=== PATIENT | male | born 1995 | race Caucasian/White ===

== ENCOUNTER 2017-11-23 17:23 | Emergency (ER) | payer OTHER ==
[~2017-11-23 17:23] MED LIST: HYDR-653 PO; ISOT40CA13 PO; MELA1TAB23 PO
[2017-11-23] MEDS ORDERED: PHENYLEPHRINE 0.5% 15 ML BTL ONE (17:35)
[2017-11-23] MEDS ORDERED: PSEUDOEPHEDRINE 30 MG TAB PO ONE (17:35)
--- NOTE | 2017-11-23 17:39 | ER Report ---
History and Physical Time Seen By MD: 17:28 Hx. of Stated Complaint: SORE THROAT, CONGESTION, RUNNY NOSE AND "TROUBLE TAKING A DEEP BREATH" HPI/ROS CHIEF COMPLAINT: sorethroat, cough, runny nose HISTORY OF PRESENT ILLNESS: PT states he started a few days ago with nasal congestion. Still with nasal congestion but now also with sorethroat and cough.Pt has pain in chest with cough. Pt not taking any medication for symptoms. no fevers. no chills. Pt is a smoker. no nausea or vomiting. no diarrhea or abd pain. Pt has had a headache but not currently. REVIEW OF SYSTEMS: Constitutional: No fever, no chills. Eyes: No discharge. ENT: + sore throat, + runny nose Cardiovascular: + chest pain with cough , no palpitations. Respiratory: + cough, no shortness of breath. Gastrointestinal: No abdominal pain, no vomiting. Genitourinary: No hematuria. Musculoskeletal: No back pain. Skin: No rashes. Neurological: + headache. Allergies: Coded Allergies: No Known Drug Allergies (Unverified , 05/04/16) Home Meds Discontinued Reported Medications Melatonin (MELATONIN) 1 Mg Tablet, 1 MG PO 12/27/16 Past Medical/Surgical History pmhx: neg Hx Smoking: Yes Smoking Status: Current: Every Day Smoker Hx Substance Use Disorder: No Constitutional Vital Sign - Last 24 Hours 11/23/17 17:27 Temp 98.2 Pulse 83 Resp 18 B/P (MAP) 144/90 Pulse Ox 95 O2 Delivery Room Air Physical Exam General Appearance: The patient is alert, has no immediate need for airway protection and no signs of toxicity. Eyes: Pupils equal and round no pallor or injection, EOMI ENT: + pharyngeal erythema but no exudates, Mucous membranes are moist, TM are nl b/l, + maxiallary sinus pressure with tiltling head forward Respiratory: There are no retractions, lungs are clear to auscultation, no wheezing or rhonchi Cardiovascular: Regular rate and rhythm. pulses are equal and symmetrical Gastrointestinal: Abdomen is soft and non tender, no masses, bowel sounds normal, no guarding, no rigidity or rebound Neurological: Cranial nerves II-XII grossly intact, no sensory or motor loss Skin: Warm and dry, no rashes. Musculoskeletal: Neck is supple non tender, no vertebral tenderness Extremities are nontender, non swollen and have full range of motion. DIFFERENTIAL DIAGNOSIS: After history and physical exam differential diagnosis was considered for sinusitis, strep, bronchitis, uri. Medical Decision Making Data Points Laboratory Hematology Test 11/23/17 17:30 Group A Streptococcus Screen Negative (NEGATIVE) Chemistry Test 11/23/17 17:30 Group A Streptococcus Screen Negative (NEGATIVE) EKG/Imaging Imaging napd ED Course/Re-evaluation ED Course will give pt a dose of afrin in ED to see if that helps with his symptoms 11/23/2017 5:49:44 pm Pt does feel some relief with the neosynephrine nasal spray. will give a dose of pseudophedrine while awaiting strep and xray. Decision to Disposition Date: Nov 23, 2017 Decision to Disposition Time: 17:53 Depart Departure Latest Vital Signs Vital Signs Date Time Temp Pulse Resp B/P (MAP) Pulse Ox O2 Delivery O2 Flow Rate FiO2 11/23/17 17:27 98.2 83 18 144/90 95 Room Air Impression: Primary Impression: Upper respiratory infection Condition: Improved Disposition: HOME OR SELF-CARE New Scripts Azithromycin (ZITHROMAX) 250 Mg Tablet 1 TAB PO QDAY, #4 TAB Prov: LEANDRO VILLA V DO 11/23/17 Patient Instructions: Upper Respiratory Infection (ED) Additional Instructions: Zithromax once a day for 4 days. This is an antibiotic. Phenergan with codeine cough/congestion syrup one teaspoon every 4-6 hours as needed for cough and nasal congestion. Your xray did not show pneumonia. Your throat screen was negative for strep. Follow up with your doctor. Problem Qualifiers Primary Impression: Upper respiratory infection URI type: unspecified URI Qualified Codes: J06.9 - Acute upper respiratory infection, unspecified CB VILLASA V DO Nov 23, 2017 17:39
--- NOTE | 2017-11-23 17:57 | RADIOLOGY IMAGING REPORT ---
FACILITY: [facility] - [place] PATIENT NAME: Enmanuel Marie : 1995 MR: [id number] V: [id number] EXAM DATE: ORDERING PHYSICIAN: LEANDRO VILLA TECHNOLOGIST: Location: [facility] - [place] Patient: Enmanuel Marie : 1995 Visit/Account:[id number] Date of Sevice: 11/23/2017 EXAMINATION: Chest radiographs 2 views HISTORY: Cough. COMPARISON: None. FINDINGS: PA and lateral views of the chest are submitted. Lines/tubes: None. Lungs/pleura: No focal consolidation or pleural effusion. Pulmonary vascularity is within normal lee its. No evidence of pneumothorax. Heart: Normal heart size. Mediastinum: Mediastinal contours are within normal limits. Bony structures/body wall: Negative. IMPRESSION: No radiographic evidence of acute cardiopulmonary disease. Report Dictated By: Kiko Isidro MD at 11/23/2017 5:52 PM Report E-Signed By: Kiko Isidro MD at 11/23/2017 5:54 PM WSN:[id number]
[2017-11-23] MEDS ORDERED: CHLORPH/HYDROCOD SUSP CR 5 ML PO ONE (18:00)
[2017-11-23] MEDS ORDERED: AZITHROMYCIN 250 MG TAB PO ONE (18:00)
[2017-11-23] MEDS ORDERED: PHEN118S56 PO (18:03)
[2017-11-23] MEDS ORDERED: AZIT-1 PO (18:03)
[2017-11-23 18:20] VITALS: BP 144/67
== END 2017-11-23 18:24 | disposition home or self-care (01) ==
LOC: ER 17:27
DX: J06.9 Acute upper respiratory infection, unspecified (principal); F17.210 Nicotine dependence, cigarettes, uncomplicated
CPT/HCPCS: 71046; 87081; 87880; 99283; Q0144